=== PATIENT | female | born 1965 | race Hispanic/Latino ===

== ENCOUNTER 2016-08-20 12:27 | Outpatient (CLI) | payer BC ==
--- NOTE | 2016-08-20 13:37 | Ultrasound Report ---
LEFT BREAST ULTRASOUND: 08/20/16 12:27:00 CLINICAL: Breast cancer survivor status post left partial mastectomy. Asymmetries on recent screening mammogram. COMPARISON: [facility]14[facility] [place] [place] FINDINGS: Ultrasound of the left breast(including all four quadrants and the retroareolar area) was performed and demonstrated normal fibroglandular structures and normal fatty structures. No mass, cyst or shadowing. IMPRESSION: Negative left breast ultrasound. BI-RADS 1 - - Negative RECOMMENDATION: Clinical followup and routine mammographic screening.
== END 2016-08-20 12:28 | disposition home or self-care (01) ==
LOC: SPVWC 12:27
PROVIDERS: ATTEND Surgery
DX: Z85.3 Personal history of malignant neoplasm of breast (principal); Z90.12 Acquired absence of left breast and nipple

== ENCOUNTER 2017-08-19 13:11 | Outpatient (CLI) | payer BC ==
--- NOTE | 2017-08-19 14:02 | Mammography Report ---
BILATERAL DIGITAL DIAGNOSTIC MAMMOGRAM WITH CAD : 08/19/17 13:11:00 CLINICAL: Breast cancer survivor status post left partial mastectomy and radiation therapy and chemotherapy for infiltrating ductal carcinoma and DCIS. COMPARISON:08/14/16 FINDINGS: The breasts are heterogeneously dense, which may obscure small masses. The left breast is smaller than the right. Stable left upper outer postsurgical scar. Left upper biopsy clip. No mass, suspicious architectural distortion or suspicious calcifications. IMPRESSION: No mammographic evidence of malignancy. BI-RADS CATEGORY: 2 -- Benign RECOMMENDATION: Routine mammographic screening in one year. COMMENT: Patient follow-up letters are generated via our [employer] application.
== END 2017-08-19 13:12 | disposition home or self-care (01) ==
LOC: SPVWC 13:11
PROVIDERS: ATTEND Surgery
DX: R92.8 Other abnormal and inconclusive findings on diagnostic imaging of breast (principal); Z90.12 Acquired absence of left breast and nipple; Z92.3 Personal history of irradiation; Z92.21 Personal history of antineoplastic chemotherapy
CPT/HCPCS: 77066

== ENCOUNTER 2018-08-25 13:08 | Outpatient (CLI) | payer BC ==
--- NOTE | 2018-08-25 13:38 | Mammography Report ---
BILATERAL DIGITAL SCREENING MAMMOGRAM WITH CAD: 08/25/18 13:08:00 CLINICAL: Routine screening.Breast cancer survivor status post left partial mastectomy , radiation therapy and chemotherapy for infiltrating ductal carcinoma and DCIS. COMPARISON:08/19/17 FINDINGS: The breasts are heterogeneously dense, which may obscure small masses. The left breast is smaller than the right with stable upper outer benign postsurgical scar. A left biopsy clip at 12:30 o'clock. No mass, suspicious architectural distortion or suspicious calcifications. IMPRESSION: No mammographic evidence of malignancy. BI-RADS CATEGORY: 2 -- Benign RECOMMENDATION: Routine mammographic screening in one year. COMMENT: Patient follow-up letters are generated via our [employer] application.
== END 2018-08-25 13:09 | disposition home or self-care (01) ==
LOC: SPVWC 13:08
PROVIDERS: ATTEND Surgery
DX: Z12.31 Encounter for screening mammogram for malignant neoplasm of breast (principal)
CPT/HCPCS: 77067

== ENCOUNTER 2020-10-18 14:57 | Outpatient (CLI) | payer BC ==
--- NOTE | 2020-10-18 17:39 | Mammography Report ---
DIGITAL SCREENING MAMMOGRAM WITH TOMOSYNTHESIS WITH CAD, 10/18/2020 CLINICAL INFORMATION / INDICATION: Screening TECHNIQUE: Digital bilateral 2D and 3D mammography with tomosynthesis was obtained in the craniocaud al and mediolateral oblique projections. Computer-Aided Detection (CAD) analysis was used for interp retation of this study. COMPARISON: Left mammogram 08/25/2018, bilateral mammogram 08/19/2017 except for right cc view, other p rior images not currently available FINDINGS: Breast Density: The breasts are heterogeneously dense, which may obscure small masses. No dominant mass, suspicious calcifications, or architectural distortion in either breast. Left surgical and biopsy changes are again seen. IMPRESSION: No mammographic evidence of malignancy. Follow up recommendation: Routine yearly BI-RADS Category 2: Benign. A "normal" or negative report should not discourage follow up or biopsy of a clinically significant f inding. A written summary of these findings will be mailed to the patient. The patient will be entered into a mammography reporting system which will generate a reminder letter for the patient's next appointmen t at the appropriate interval. The [employer] recommends yearly mammograms starting at age 40 and continuing as l concha as a woman is in good health. Breast MRI is recommended for women with an approximate 20-25% or greater lifetime risk of breast cancer, including women with a strong family history of breast or ova alejandra cancer or who have been treated for Hodgkin's disease. Signer Name: Mehdi Collins MD Signed: 10/18/2020 5:34 PM Workstation Name: [email or web address]
== END 2020-10-18 14:58 | disposition home or self-care (01) ==
LOC: SPVWC 14:57
PROVIDERS: ATTEND Surgery
DX: Z12.31 Encounter for screening mammogram for malignant neoplasm of breast (principal)
CPT/HCPCS: 77063; 77067